=== PATIENT | female | born 1950 | race Caucasian/White ===

== ENCOUNTER 2018-09-12 07:35 | Day surgery (SDC) | payer OTHER ==
[~2018-09-12] VITALS: Ht 154.9 cm; Wt 61.6 kg
[~2018-09-12 07:35] MED LIST: Aspirin EC81 MG PO; BLOOD PRESSURE MED PO; CHOLESTEROL MED PO; Multiple Vitam1 EACH PO; PRESERVISION A1 EACH PO
[2018-09-12] MEDS ORDERED: ATOR80 PO (08:13)
[2018-09-12] MEDS ORDERED: LISI20 PO (08:13)
[2018-09-12] MEDS ORDERED: FISH OIL 1,2001 EAC1 PO (08:14)
--- NOTE | 2018-09-12 10:59 | NUR ---
09/12/18 1059 Tri Mulligan JAW THRUSTS PERFORMED THROUGHOUT PROCEDURE NEEDED FOR OBSTUCTION RELATED TO MYLENE.
== END 2018-09-12 10:45 | disposition home or self-care (01) ==
LOC: ORSCSDS 07:35
PROVIDERS: Student in an Organized Health Care Education/Training Program
PROC: 0DBN8ZX Excision of Sigmoid Colon, Via Natural or Artificial Opening Endoscopic, Diagnostic (ICD-10-PCS; principal; 2018-09-12 09:00)
PROC: 0DBK8ZX Excision of Ascending Colon, Via Natural or Artificial Opening Endoscopic, Diagnostic (ICD-10-PCS; principal; 2018-09-12 09:00)
PROC: 3E0H8GC Introduction of Other Therapeutic Substance into Lower GI, Via Natural or Artificial Opening Endoscopic (ICD-10-PCS; principal; 2018-09-12 09:00)
PROC: 0DBL8ZX Excision of Transverse Colon, Via Natural or Artificial Opening Endoscopic, Diagnostic (ICD-10-PCS; principal; 2018-09-12 09:00)
DX: Z12.11 Encounter for screening for malignant neoplasm of colon (principal); Z86.010 Personal history of colon polyps; C18.7 Malignant neoplasm of sigmoid colon; C18.4 Malignant neoplasm of transverse colon; K63.5 Polyp of colon; D12.3 Benign neoplasm of transverse colon; D12.5 Benign neoplasm of sigmoid colon; I10 Essential (primary) hypertension; E78.5 Hyperlipidemia, unspecified; F17.210 Nicotine dependence, cigarettes, uncomplicated; Z79.899 Other long term (current) drug therapy
CPT/HCPCS: 88305; J2001; J2704; J7120

== ENCOUNTER 2018-10-25 07:32 | Day surgery (SDC) | payer OTHER ==
[~2018-10-25] VITALS: Ht 154.9 cm; Wt 63.2 kg
[~2018-10-25 07:32] MED LIST changes: +ATOR80 PO; +FISH OIL 1,2001 EAC1 PO; +LISI20 PO
--- NOTE | 2018-10-25 08:36 | NUR ---
Ambulatory in Day Surgery History, Chart, Medications and Allergies reviewed before start of procedure. Lungs clear T/O to Auscultation. Patient confirms NPO status and agrees with scheduled surgery. Patient States Post-Procedure ride home has been arranged.
--- NOTE | 2018-10-25 11:07 | NUR ---
Patient up to Ambulate independently. Gait steady. Dressing to procedure site clean, dry, intact with no visible drainage, swelling, erythema or bruising noted. Discharge instructions reviewed with patient. Patient verbalizes understanding. Copy given to patient to take home. Discharged via wheelchair to private car for ride home.
--- NOTE | 2018-10-25 11:36 | NUR ---
TIERRA, PT REPORT FROM JOSE DANIEL ROLDAN THAT CXR NORMAL AFTER MEDIPORT PLACEMENT.
--- NOTE | 2018-10-27 16:08 | NUR ---
10/27/18 1608 Twyla Honeycutt VERIFICATIONS: EDIT CHART.
== END 2018-10-25 11:07 | disposition home or self-care (01) ==
LOC: ORSCMMR 07:32 → ORD 09:00 → ORSCMMR 11:07
PROVIDERS: Surgery
PROC: 05HM33Z Insertion of Infusion Device into Right Internal Jugular Vein, Percutaneous Approach (ICD-10-PCS; principal; 2018-10-25 09:00)
PROC: B5131ZA Fluoroscopy of Right Jugular Veins using Low Osmolar Contrast, Guidance (ICD-10-PCS; principal; 2018-10-25 09:00)
DX: C18.9 Malignant neoplasm of colon, unspecified (principal); C78.6 Secondary malignant neoplasm of retroperitoneum and peritoneum; I10 Essential (primary) hypertension; G47.33 Obstructive sleep apnea (adult) (pediatric); Z79.899 Other long term (current) drug therapy; Z79.82 Long term (current) use of aspirin; Z87.891 Personal history of nicotine dependence
CPT/HCPCS: 77001; C1788; J0690; J1100; J1642; J2250; J2405; J2704; J7120

== ENCOUNTER 2020-04-08 15:15 | Inpatient (IN) | payer OTHER, MEDICARE ==
[~2020-04-08] VITALS: Ht 154.9 cm; Wt 49.7 kg
[~2020-04-08 15:15] MED LIST changes: +MULTIVITAMIN PO; -Multiple Vitam1 EACH PO
[2020-04-08 16:53] LABS: BASOPHILS ABSOLUTE AUTO 0.06 K/mm3 (0.00-0.23); BASOPHILS PERCENT AUTO 1 % (0-2); EOSINOPHILS ABSOLUTE AUTO 0.01 K/mm3 (0.00-0.68); EOSINOPHILS PERCENT AUTO 0 % (0-6); IMMATURE GRAN ABSOLUTE AUTO 0.07 K/mm3 (0.00-0.10); IMMATURE GRAN PERCENT AUTO 1 % (0-1); LYMPHOCYTES ABSOLUTE AUTO 4.79 K/mm3 (0.84-5.20); LYMPHOCYTES PERCENT AUTO 38 % (21-46); MONOCYTES ABSOLUTE AUTO 1.18 K/mm3 (0.16-1.47); MONOCYTES PERCENT AUTO 9 % (4-13); Mean Corpuscular HGB 32.9 pg (26.0-34.0); Mean Corpuscular HGB Conc 34.2 g/dL (31.5-36.5); Mean Corpuscular Volume 96 fL (80-100); Mean Platelet Volume 8.9 fL (9.1-12.4); NEUTROPHILS ABSOLUTE AUTO 6.41 K/mm3 (1.96-9.15); NEUTROPHILS PERCENT AUTO 51 % (41-73); Platelet Count 405 K/mm3 (150-400); RDW Coefficient Variation 15.6 % (11.7-14.2); RDW Standard Deviation 55.1 fL (35.1-46.3); Red Blood Cell Count 3.95 M/mm3 (3.80-5.20); White Blood Cell Count 12.52 K/mm3 (4.00-11.30)
[2020-04-08 17:00] LABS: Influenza A, PCR NEGATIVE (NEGATIVE); Influenza B, PCR NEGATIVE (NEGATIVE); Resp Syncytial Virus, PCR NEGATIVE (NEGATIVE); SARS-Cov-2 (COVID-19) PCR, MMC NEGATIVE (NEGATIVE)
--- NOTE | 2020-04-08 18:28 | NUR ---
REPORT RECEIVED FROM ED RN
[2020-04-09 04:16] LABS: BASOPHILS ABSOLUTE AUTO 0.05 K/mm3 (0.00-0.23); BASOPHILS PERCENT AUTO 1 % (0-2); EOSINOPHILS ABSOLUTE AUTO 0.02 K/mm3 (0.00-0.68); EOSINOPHILS PERCENT AUTO 0 % (0-6); Hematocrit 32.6 % (33.0-51.0); Hemoglobin 11.1 g/dL (11.5-16.0); IMMATURE GRAN ABSOLUTE AUTO 0.03 K/mm3 (0.00-0.10); IMMATURE GRAN PERCENT AUTO 0 % (0-1); LYMPHOCYTES ABSOLUTE AUTO 3.16 K/mm3 (0.84-5.20); LYMPHOCYTES PERCENT AUTO 36 % (21-46); MONOCYTES ABSOLUTE AUTO 0.98 K/mm3 (0.16-1.47); MONOCYTES PERCENT AUTO 11 % (4-13); Mean Corpuscular HGB 32.7 pg (26.0-34.0); Mean Corpuscular Volume 96 fL (80-100); Mean Platelet Volume 8.7 fL (9.1-12.4); NEUTROPHILS ABSOLUTE AUTO 4.52 K/mm3 (1.96-9.15); NEUTROPHILS PERCENT AUTO 52 % (41-73); Platelet Count 310 K/mm3 (150-400); RDW Coefficient Variation 15.5 % (11.7-14.2); RDW Standard Deviation 54.4 fL (35.1-46.3); Red Blood Cell Count 3.39 M/mm3 (3.80-5.20); White Blood Cell Count 8.76 K/mm3 (4.00-11.30)
[2020-04-09 04:41] LABS: Anion Gap 13 mmol/L (6-16); Blood Urea Nitrogen 18 mg/dL (8-24); CO2, Blood 22 mmol/L (21-32); Calcium, Blood 8.2 mg/dL (8.5-10.1); Chloride, Blood 104 mmol/L (98-108); Creatinine, Blood 0.49 mg/dL (0.40-1.00); Glomerular Filtration Rate >60 (60-); Glucose, Blood 67 mg/dL (70-99); Potassium, Blood 3.4 mmol/L (3.5-5.5); Sodium, Blood 139 mmol/L (136-145)
--- NOTE | 2020-04-09 06:19 | NUR ---
SUMMARY REMAINS NPO PENDING OR TODAY. VOIDING AND HAS LIGHT CARISSA WATERS.CALLED TONIGHT AND OBTAINED ORDERS FOR IV MEDS AND IV FLUIDS.ALSO WILL HOLD LOVENOX THIS AM.
--- NOTE | 2020-04-09 14:16 | NUR ---
PT TO DAY SURGERY VIA FR[facility]ISCO
--- NOTE | 2020-04-09 14:39 | NUR ---
History, Chart, Medications and Allergies reviewed before start of procedure. Lungs clear T/O to Auscultation. Pre-Op teaching done. Pt verbalizes understanding.
--- NOTE | 2020-04-09 15:16 | NUR ---
CARE COORDINATION REFERRAL - ADMIT: 04/08/20 DISCHARGE: DX: BOWEL OBSTRUCTION CC: KWILCOX KRISTINA CALL: PATIENT RESIDENCE: HOME CAREGIVER: SELF DX: ADENOCARCINOMA OF SIGMOID COLON, HTN, MYLENE, VIT D DEFICIENCY, SEE LIST DME: CPAP MACHINE CCM: NONE HOME HEALTH: NONE SUMMARY: ADMIT: 04/08/20 04/09/20- PT IS SCHEDULED TO HAVE SURGERY TODAY. -CELESTE
--- NOTE | 2020-04-09 17:50 | NUR ---
POST OP ARRIVES TO ROOM C/O 09/17 PAIN. EYES CLOSED, BUT EYEBROWS FORROWED. VSS & APPROPRIATE. ABD W/ 2 LAP SITES TO R SIDE OF ABD W/ WOUND GLUE. NO DRAINAGE NOTED. OSTOMY TO L ABD. GAS; NO STOOL. STOMA MOIST, PINK. LUNGS CLEAR. CALL MADE TO DR PEREZ RE: PAIN MANAGEMENT.
--- NOTE | 2020-04-10 04:07 | NUR ---
SHIFT SUMMARY POD1 LAP LOOP ILEOSTOMY. VSS. PT REPORTS PAIN 5/10, WELL CONTROLLED AND MANAGED WITH DILAUDID. PT SLEPT T/O SHFIT. WENT TO BSC X3, TOLERATING MOV'T WELL, MILD SHAKY. PT TOLERATING ICE CHIPS AND WATER. PT HAS FEAR TO ADVANCE HER DIET AT THIS TIME. SHE DENIES N/V. ILEOSOTMY BEEFY RED, INTACT WITH OUTPUT OF 300ML, HAS BEEN PASSING FLATUS IN HER ILEOSTOMY BAG. ADEQUATE URINE OUTPUT. DENIES DIFFICULTY VOIDING. LUNGS ARE CLEAR. PT IS COMFORTABLE IN HER BED AT THIS TIME. CALL LIGHT WITHIN REACH.
--- NOTE | 2020-04-10 09:32 | NUR ---
DR PEREZ RECENTLY HERE TO SEE PT.
--- NOTE | 2020-04-10 16:24 | NUR ---
SHIFT SUMMARY PT HAD EMESIS EARLIER TODAY, PT WAS MED FOR NAUSEA. PT HAD SHOWER TODAY. PT BEEN UP TO BATHROOM WITH ASSIST. PT HAVING GAS OUT OF OSTOMY. DR LIMON HERE TO SEE PT TODAY WELL DR PEREZ. PT TOLERATING ICE CHIPS AND WATER BUT DOES NOT LIKE TO EAT MUCH. SENIOR SALES MANAGER WAS HERE TO SEE PT WHEN FAMILY WAS PRESENT. PT USING CALL LIGHT APPR. IVF IN PLACE TO MEDIPORE, FLUSHES WELL.
--- NOTE | 2020-04-11 03:36 | NUR ---
SHIFT SUMMARY PT AOX4. VSS. TOLERATING PO INTAKE, DENIES N/V. ENC TO HYDRATE WITH WATER. PT IS 1 PERSON SBA W/ FWW. PT HAS BEEN PASSING FLATUS. PT USING CALL LIGHT APPROPRIATELY. REPORTS PAIN AT AROUND MIDNIGHT. PAIN MANAGED WITH DILAUDID. SHE SLEPT T/O THE SHIFT AFTER MIDNIGHT. OSTOMY BAG INTACT. OSTOMY OUTPUT WITH 300ML W/ LIGHT BROWN LIQUID. PT ALSO DENIES CP, SOB, NUMBNESS AND TINGLING SENSATION. CALL LIGHT WITHIN REACH.
[2020-04-11 05:01] LABS: BASOPHILS ABSOLUTE AUTO 0.04 K/mm3 (0.00-0.23); BASOPHILS PERCENT AUTO 0 % (0-2); EOSINOPHILS PERCENT AUTO 0 % (0-6); Hematocrit 31.9 % (33.0-51.0); Hemoglobin 10.9 g/dL (11.5-16.0); IMMATURE GRAN ABSOLUTE AUTO 0.13 K/mm3 (0.00-0.10); IMMATURE GRAN PERCENT AUTO 1 % (0-1); LYMPHOCYTES ABSOLUTE AUTO 2.45 K/mm3 (0.84-5.20); LYMPHOCYTES PERCENT AUTO 15 % (21-46); MONOCYTES ABSOLUTE AUTO 0.74 K/mm3 (0.16-1.47); MONOCYTES PERCENT AUTO 4 % (4-13); Mean Corpuscular HGB 33.1 pg (26.0-34.0); Mean Corpuscular HGB Conc 34.2 g/dL (31.5-36.5); Mean Corpuscular Volume 97 fL (80-100); Mean Platelet Volume 9.1 fL (9.1-12.4); NEUTROPHILS ABSOLUTE AUTO 13.28 K/mm3 (1.96-9.15); NEUTROPHILS PERCENT AUTO 80 % (41-73); Platelet Count 266 K/mm3 (150-400); RDW Coefficient Variation 15.5 % (11.7-14.2); RDW Standard Deviation 55.2 fL (35.1-46.3); Red Blood Cell Count 3.29 M/mm3 (3.80-5.20); White Blood Cell Count 16.64 K/mm3 (4.00-11.30)
[2020-04-11 05:18] LABS: Anion Gap 8 mmol/L (6-16); Blood Urea Nitrogen 8 mg/dL (8-24); Bun/Creatinine Ratio 17.2 (12.0-20.0); CO2, Blood 23 mmol/L (21-32); Calcium, Blood 8.8 mg/dL (8.5-10.1); Chloride, Blood 103 mmol/L (98-108); Creatinine, Blood 0.46 mg/dL (0.40-1.00); Glomerular Filtration Rate >60 (60-); Glucose, Blood 100 mg/dL (70-99); Potassium, Blood 3.6 mmol/L (3.5-5.5); Sodium, Blood 134 mmol/L (136-145)
--- NOTE | 2020-04-11 10:47 | NUR ---
DISCUSSED PT'S STATUS WITH DR PERSAUD.
--- NOTE | 2020-04-11 12:45 | NUR ---
LAB NOTIFIED RN OF PT REQUESTING TO HAVE BLOOD CULTURE DRAWN FROM [facility]. DR NOTIFIED, REPORTS TO DRAW ONE FROM [facility] AND ONE FROM OTHER LOCATION. LAB NOTIFIED.
--- NOTE | 2020-04-11 14:56 | NUR ---
DR PEREZ RECENTLY HERE TO SEE PT.
[2020-04-11 15:46] LABS: Source, Urine Clean Catch
[2020-04-11 15:50] LABS: Appearance, Urine Clear (Clear); Bilirubin, Urine Neg (Neg); Blood, Urine 1+ (Neg); Color, Urine Yellow (P-Yellow); Glucose Qualitative, Urine 1+ (Neg); Ketones, Urine Neg (Neg); Leukocyte Esterase, Urine 2+ (Neg); Nitrite, Urine Neg (Neg); Protein, Urine 1+ (Neg); Specific Gravity, Urine 1.015 (1.003-1.022); Urobilinogen, Urine 1+ (Normal)
[2020-04-11 16:05] LABS: Bacteria Few /hpf; Mucus Mod (0-Heavy); Red Blood Cells, Urine 0-2 /hpf (0-2); Squamous Epithelial Cells Few /hpf (Few)
--- NOTE | 2020-04-11 16:46 | NUR ---
SHIFT SUMMARY PT TOLERATED CRACKERS TODAY WHICH DR PEREZ REPORTED TO GIVE HER. PT HAD SMALL AMT OUT OF OSTOMY THIS AFTERNOON/EVENING. PT BEEN UP WITH SBA. PT USING FLUTTER VALVE AND I/S. PT USING CALL LIGHT APPR. PT BEEN ASSISTED WITH ADL'S PRN. PT MED FOR PAIN WHEN PT HAVING HICCUPS. DR PERSAUD AND DR PEREZ BEEN TO SEE PT TODAY. PT IN BED TAKING NAP AT THIS TIME.
--- NOTE | 2020-04-12 07:30 | NUR ---
SHIFT SUMMARY POD#3. AAOX4. DISCOMFORT CONTROLLED WITH TYLENOL + X1 MORPHINE. NO NAUSEA/EMESIS. ABD INCISION C/D/I WITH LARGE AMOUNTS OF LIQUID OUTPUT THROUGH ILEOSTOMY. UP TO RESTROOM SBA. IVF PER ORDERS. NO ACUTE CHANGES T/O NIGHT. PT RESTED WELL. REPORT TO DAY SHIFT RN AT THIS TIME.
--- NOTE | 2020-04-12 10:17 | NUR ---
[employer] FORM FAXED. PT WATCHING OSTOMY EDUCATION VIDEOS CURRENTLY. PT EMPTIED HER OWN BAG THIS MORNING. WILL CONTINUE EDUCATION TODAY, INCLUDING WITH DAUGHTER WHEN SHE ARRIVES AT 1400.
--- NOTE | 2020-04-12 19:38 | NUR ---
SHIFT SUMMARY PT A&OX4, VSS, POD3 ILEOSTOMY PLACEMENT WITH LARGE AMOUNT OF BROWN LIQUID OUTPUT. PAIN MANAGED WITH TYLENOL. DAVID REG DIET, DENIES N&V. AMBULATES SBA TO [facility]; UP TO CHAIR T/O SHIFT. PT PROVIDED EDUCATION ON OSTOMY EMPTYING TODAY; PT IS NOW EMPTYING OSTOMY ON HER OWN WITH HEDIS REGISTERED NURSE RN STANDBY; PT SHOWN WHERE TO FIND OSTOMY VIDEOS, PT HAS BEEN WATCHING VIDEOS OFF/ON T/O SHIFT. REPORT PROVIDED TO OMEGA PERES.
--- NOTE | 2020-04-13 02:56 | NUR ---
SHIFT SUMMARY: POD 4 ILEOSTOMY PATIENT IS ALERT AND ORIENTED X4. VITAL SIGNS ARE WNL AND IS ON RA. PAIN IS CONTROLLED WITH TYLENOL, TYLENOL PM, AND NORCO. SHE HAS LIQUID BROWN OUTPUT IN THE OSTOMY BAG. PATIENT HAS BEEN EMPTYING OUT OSTOMY ON HER OWN AND IS TOLERATING PO INTAKE. SHE IS A SBA WITH AMBULATION. SHE DENIES NAUSEA OR VOMITING. PATIENT IS CURRENTLY LAYING IN BED WITH CALL LIGHT IN REACH. THE PLAN IS TO CONTINUE OSTOMY EDUCATION WITH VIDEOS. SHE NEEDS TO HAVE LESS THEN 1 LITER OF OUTPUT TO BE DISCHARGED HOME.
[2020-04-13 04:33] LABS: BASOPHILS ABSOLUTE AUTO 0.03 K/mm3 (0.00-0.23); BASOPHILS PERCENT AUTO 0 % (0-2); EOSINOPHILS ABSOLUTE AUTO 0.16 K/mm3 (0.00-0.68); EOSINOPHILS PERCENT AUTO 2 % (0-6); Hematocrit 28.6 % (33.0-51.0); IMMATURE GRAN ABSOLUTE AUTO 0.04 K/mm3 (0.00-0.10); IMMATURE GRAN PERCENT AUTO 0 % (0-1); LYMPHOCYTES ABSOLUTE AUTO 1.96 K/mm3 (0.84-5.20); LYMPHOCYTES PERCENT AUTO 20 % (21-46); MONOCYTES ABSOLUTE AUTO 0.77 K/mm3 (0.16-1.47); MONOCYTES PERCENT AUTO 8 % (4-13); Mean Corpuscular Volume 94 fL (80-100); Mean Platelet Volume 9.5 fL (9.1-12.4); NEUTROPHILS ABSOLUTE AUTO 7.06 K/mm3 (1.96-9.15); NEUTROPHILS PERCENT AUTO 70 % (41-73); Platelet Count 263 K/mm3 (150-400); RDW Coefficient Variation 15.4 % (11.7-14.2); RDW Standard Deviation 53.4 fL (35.1-46.3); Red Blood Cell Count 3.03 M/mm3 (3.80-5.20); White Blood Cell Count 10.02 K/mm3 (4.00-11.30)
[2020-04-13 04:49] LABS: Anion Gap 5 mmol/L (6-16); Blood Urea Nitrogen 7 mg/dL (8-24); Bun/Creatinine Ratio 16.1 (12.0-20.0); CO2, Blood 29 mmol/L (21-32); Calcium, Blood 8.8 mg/dL (8.5-10.1); Chloride, Blood 101 mmol/L (98-108); Creatinine, Blood 0.44 mg/dL (0.40-1.00); Glomerular Filtration Rate >60 (60-); Glucose, Blood 92 mg/dL (70-99); Potassium, Blood 3.3 mmol/L (3.5-5.5); Sodium, Blood 135 mmol/L (136-145)
--- NOTE | 2020-04-13 16:58 | NUR ---
OSTOMY APPLIANCE CHANGED PT EDUCATED OSTOMY APPLIANCE WAS CHANGED. PT REQUIRED 2 3/4 OVAL OSTOMY APPLIANCE. PT TOLERATED DRESSING CHANGE WELL. SKIN AROUND OSTOMY APPLIANCE CLEAN AND INTACT.
--- NOTE | 2020-04-13 18:06 | NUR ---
SHIFT SUMMARY PT IS POD#[address] PEREZ. PAIN HAS BEEN MANAGED WITH NORCO AND TYLENOL. PT IS TOLERATING SMALL AMOUNTS OF HER REGULAR DIET. PT IS A SBA WHEN UP TO THE BATHROOM. SHE HAS DEMONSTRATED THE ABILITY TO EMPTY HER OSTOMY BAG. PT WAS EDUCATED ABOUT CHANGING THE OSTOMY APPLIANCE. PT IS STILL HAVING LARGE AMOUNTS OF STOOL OUT OF HER OSTOMY. POTASSIUM WAS LOW TODAY AND REPLACED. VSS. WILL MONITOR UNTIL REPORT TO ONCOMING RN.
[2020-04-14 05:12] LABS: BASOPHILS ABSOLUTE AUTO 0.05 K/mm3 (0.00-0.23); BASOPHILS PERCENT AUTO 0 % (0-2); EOSINOPHILS ABSOLUTE AUTO 0.26 K/mm3 (0.00-0.68); EOSINOPHILS PERCENT AUTO 2 % (0-6); Hematocrit 33.9 % (33.0-51.0); Hemoglobin 11.5 g/dL (11.5-16.0); IMMATURE GRAN ABSOLUTE AUTO 0.04 K/mm3 (0.00-0.10); IMMATURE GRAN PERCENT AUTO 0 % (0-1); LYMPHOCYTES ABSOLUTE AUTO 3.42 K/mm3 (0.84-5.20); LYMPHOCYTES PERCENT AUTO 30 % (21-46); MONOCYTES ABSOLUTE AUTO 0.88 K/mm3 (0.16-1.47); MONOCYTES PERCENT AUTO 8 % (4-13); Mean Corpuscular HGB 32.7 pg (26.0-34.0); Mean Corpuscular HGB Conc 33.9 g/dL (31.5-36.5); Mean Corpuscular Volume 96 fL (80-100); Mean Platelet Volume 9.1 fL (9.1-12.4); NEUTROPHILS ABSOLUTE AUTO 6.92 K/mm3 (1.96-9.15); NEUTROPHILS PERCENT AUTO 60 % (41-73); Platelet Count 349 K/mm3 (150-400); RDW Coefficient Variation 15.4 % (11.7-14.2); RDW Standard Deviation 54.1 fL (35.1-46.3); Red Blood Cell Count 3.52 M/mm3 (3.80-5.20); White Blood Cell Count 11.57 K/mm3 (4.00-11.30)
[2020-04-14 05:33] LABS: Anion Gap 5 mmol/L (6-16); Blood Urea Nitrogen 5 mg/dL (8-24); Bun/Creatinine Ratio 10.7 (12.0-20.0); CO2, Blood 26 mmol/L (21-32); Chloride, Blood 104 mmol/L (98-108); Creatinine, Blood 0.47 mg/dL (0.40-1.00); Glomerular Filtration Rate >60 (60-); Glucose, Blood 90 mg/dL (70-99); Magnesium, Blood 1.3 mg/dL (1.6-2.4); Phosphorus, Blood 2.8 mg/dL (2.5-4.9); Potassium, Blood 4.7 mmol/L (3.5-5.5); Sodium, Blood 135 mmol/L (136-145)
--- NOTE | 2020-04-14 07:11 | NUR ---
SUMMARY PT CONTINUES TO HAVE LARGE VOLUME OUTPUT.
--- NOTE | 2020-04-14 19:27 | NUR ---
SHIFT SUMMARY PT IS POD#4 FROM LAPAROSCOPIC DIVERTING LOOP ILEOSTOMY. PT IS ABLE TO EMPTY HER OSTOMY BAG INDEPENDENTLY. OSTOMY IS STILL PUTTING OUT LARGE AMOUNTS OF LIQUID STOOL. PT REMAINS ON IV FLUIDS FOR HYDRATION. PT ENCOURAGED TO DRINK FLUIDS THAT CONTAIN ELECTROLYTES. PT IS A SBA FOR HELP WITH LINES AND TUBES. PT TOLERATING SMALL AMOUNTS OF REGULAR DIET. VSS. REPORT GIVEN TO [place] PERES.
[2020-04-15 02:58] LABS: BASOPHILS ABSOLUTE AUTO 0.05 K/mm3 (0.00-0.23); BASOPHILS PERCENT AUTO 1 % (0-2); EOSINOPHILS ABSOLUTE AUTO 0.17 K/mm3 (0.00-0.68); EOSINOPHILS PERCENT AUTO 2 % (0-6); Hematocrit 33.5 % (33.0-51.0); Hemoglobin 11.5 g/dL (11.5-16.0); IMMATURE GRAN ABSOLUTE AUTO 0.04 K/mm3 (0.00-0.10); IMMATURE GRAN PERCENT AUTO 0 % (0-1); LYMPHOCYTES ABSOLUTE AUTO 4.17 K/mm3 (0.84-5.20); LYMPHOCYTES PERCENT AUTO 45 % (21-46); MONOCYTES ABSOLUTE AUTO 0.79 K/mm3 (0.16-1.47); MONOCYTES PERCENT AUTO 9 % (4-13); Mean Corpuscular HGB 32.8 pg (26.0-34.0); Mean Corpuscular HGB Conc 34.3 g/dL (31.5-36.5); Mean Corpuscular Volume 95 fL (80-100); Mean Platelet Volume 9.1 fL (9.1-12.4); NEUTROPHILS ABSOLUTE AUTO 4.06 K/mm3 (1.96-9.15); NEUTROPHILS PERCENT AUTO 44 % (41-73); Platelet Count 354 K/mm3 (150-400); RDW Coefficient Variation 15.6 % (11.7-14.2); RDW Standard Deviation 54.2 fL (35.1-46.3); Red Blood Cell Count 3.51 M/mm3 (3.80-5.20); White Blood Cell Count 9.28 K/mm3 (4.00-11.30)
[2020-04-15 03:12] LABS: Anion Gap 6 mmol/L (6-16); Blood Urea Nitrogen 7 mg/dL (8-24); Bun/Creatinine Ratio 14.3 (12.0-20.0); CO2, Blood 27 mmol/L (21-32); Calcium, Blood 8.9 mg/dL (8.5-10.1); Chloride, Blood 101 mmol/L (98-108); Creatinine, Blood 0.49 mg/dL (0.40-1.00); Glomerular Filtration Rate >60 (60-); Glucose, Blood 99 mg/dL (70-99); Magnesium, Blood 1.7 mg/dL (1.6-2.4); Phosphorus, Blood 3.2 mg/dL (2.5-4.9); Potassium, Blood 4.4 mmol/L (3.5-5.5); Sodium, Blood 134 mmol/L (136-145)
--- NOTE | 2020-04-15 06:13 | NUR ---
SHIFT SUMMARY LYING IN HIGH FOWLERS WITH EYES CLOSED. AAO X3, GATES, FOLLOWS ALL COMMANDS. HAS RESTED WELL THIS SHIFT. REITERATED NEED TO BURP OSTOMY BAG TO KEEP IT FROM BURSTING AWAY FROM HER BODY, VOICES UNDERSTATNDING. ABLE TO RETURN DEMONSTRATE HOW TO BURP THE BAG. LAP SITES ARE C/D/I. IVF INFUSING TO RIGHT CW MEDIPORT. AM LABS DRAWN WITH EASE. ABLE TO AMBULATE TO COMMODE WITH SBA AND WALKER, TOLERATING WELL. NO SIGNIFICANT CHANGES THIS SHIFT. DENIES PAIN, DISCOMFORT, OR FURTHER NEEDS AT THIS TIME. SAFETY MEASURES IN PLACE. WILL CONTINUE TO MONITOR AND GIVE HAND OFF TO ONCOMING SHIFT USING SBAR DURING BEDSIDE REPORT.
--- NOTE | 2020-04-15 16:52 | NUR ---
SHIFT SUMMARY PT IS IND TO EMPTY OWN OSTOMY BAG. NERVOUS TO CHANGE ENTIRE APPLIANCE. WAITING FOR TOMORROW TO DO THIS SO DAUGHTER CAN BE INVOLVED. TAKING IN PO WELL.
--- NOTE | 2020-04-15 18:48 | NUR ---
04/15/[address] Quijano, ETA discharge home on Wednesday. Per floor nurse, patient would like a bedside commode and a shower chair ordered at discharge. cp
--- NOTE | 2020-04-16 05:23 | NUR ---
SHIFT SUMMARY PT AOX4. VSS. NO ACUTE CHANGES OVERNIGHT. PT STATES SHE DID NOT GET ENOUGH SLEEP T/O SHIFT. SHE HAS BEEN INDEPENDENT IN ROOM AND IN CARING FOR HER OSTOMY BAG. PAIN IS WELL CONTROLLED. PAIN MANAGED WITH NORCO X1 AND TYLENOL X1. ANTICIPATE FOR DISCHARGE TODAY. SEE PREVIOUS NOTES. CALL LIGHT WITHIN REACH.
[2020-04-16 05:29] LABS: Anion Gap 6 mmol/L (6-16); Blood Urea Nitrogen 7 mg/dL (8-24); Bun/Creatinine Ratio 14.6 (12.0-20.0); CO2, Blood 27 mmol/L (21-32); Calcium, Blood 8.9 mg/dL (8.5-10.1); Chloride, Blood 103 mmol/L (98-108); Creatinine, Blood 0.48 mg/dL (0.40-1.00); Glomerular Filtration Rate >60 (60-); Glucose, Blood 81 mg/dL (70-99); Potassium, Blood 4.2 mmol/L (3.5-5.5); Sodium, Blood 136 mmol/L (136-145)
--- NOTE | 2020-04-16 15:05 | NUR ---
04/16/20- REVIEWED KRISTINA LETTER WITH PT. SHE HAS REQUESTED A 4WW AND SHOWER CHAIR. ORDER PUT IN THROUGH [place] FOR PROVIDER TO SIGN. PT WOULD LIKE TO HAVE HER DAUGHTER'S NUMBER BE THE CONTACT INFORMATION INCASE SHE IS UNABLE TO GET TO THE PHONE. HER DAUGHTER IS TONI- [phone]. ORDERED DME THROUGH [facility] AND REQUESTED THAT IT BE DELIVERED TO THE HOME TOMORROW MORNING PRIOR TO PT BEING DISCHARGED. -KEITHW
--- NOTE | 2020-04-16 15:48 | NUR ---
OSTOMY EDUCATION > 1 HR SPENT W/ EDUCATION. PT WAS ABLE TO APPLY NEW OSTOMY APPLIANCE W/ VERY MINIMAL ASSIST FROM THIS RN.
--- NOTE | 2020-04-16 18:07 | NUR ---
SHIFT SUMMARY PT HAS CONTINUED TO BE INVOLVED IN OSTOMY CARE. PAIN WELL MANAGED. EATING & DRINKING WELL.
--- NOTE | 2020-04-17 05:45 | NUR ---
OSTOMY LEAKING, PT WAS CLEANED, LINENS CHANGED, NEW GOWN ON. CHANGED APPLIANCE WITH 2 3/4 OVAL. SKIN WAS RED FROM THE ADHESIVE FROM PREVIOUS APPLIANCE. DID APPLY SKIN BARRIER TO SURROUNDING SKIN. STOMA PINK AND MOIST. PT DOES COMPLAIN OR ITCHING TO BACK. DOES HAS RASH SLIGHTLY RAISED. PRIMARY NURSE NOTIFIED, DR. JASON WAS CALLED AND BENADRYL WAS ORDERED.
--- NOTE | 2020-04-17 11:04 | NUR ---
Brief supportive visit this AM. Pt resting in bed upon arrival. Pt reports current regimen is managing her pain at this time. Pt denies dyspnea, nausea, and anxiety. Offered therapeutic listening as Pt reports adequate support at home with her daughter and son in law. Listened as Pt reports plan to resume chemo therapy. Continued therapeutic listening. Pt reports no concerns at this time. Spoke with Bedside JA Mauro and discussed case. Possible plan to D/C home today. No concerns reported at this time. Palliative Care will remain available.
[2020-04-17] MEDS ORDERED: HYDR1TAB94 PO (13:54)
[2020-04-17] MEDS ORDERED: LOPE2C PO (13:55)
--- NOTE | 2020-04-17 14:24 | NUR ---
DISCHARGE INSTRUCTIONS. PT DOING WELL. HOME W/ HOME HEALTH SET UP. PLENTY OF OSTOMY SUPPLIES SENT. PT FEELS CONFIDENT WITH OSTOMY. MEDS CALLED TO [facility]. SCRIPT GIVEN. AWAITING DAUGHTER FOR RIDE HOME.
--- NOTE | 2020-04-17 15:44 | NUR ---
04/17/20- PT IS GOING TO BE DISCHARGED TODAY HOME. HER DAUGHTER TONI WILL PICK HER UP AT 3PM PER HER CONVERSATION WITH THE PT. DAUGHTER REQUESTED A BEDSIDE COMMODE. SHE ALSO STATES THAT THE WALKER AND SHOWER CHAIR HAD NOT BE DELIVERED AT THE TIME OF CONVERSATION. CONTACTED [facility] AND THEY REPORT THAT THE PUBLIC DEFENDER IS OUT WITH THEIR ITEMS AT TIME OF CALL AND HE CAN SWING BY A MINING TEACHER THE BEDSIDE COMMODE TO DELIVER SAME TIME OTHER ITEMS. CALLED DAUGHTER AND UPDATED HER ON [facility] DELIVERY. REVIEWED KRISTINA LETTER WITH DAUGHTER AND THAT HER MOM HAS HER LISTED AT PERSON TO CONTACTED. CONFIRMED THE NUMBER WITH HER. DAUGHTER ACKNOWLEDGED UNDERSTANDING. -CELESTE
== END 2020-04-17 15:01 | disposition home health service (06) | DRG 329 ==
LOC: ER 15:15 → SURS 16:41 → ERHOLD 16:41 → SURS 18:39
PROVIDERS: Physician Assistant; Surgery; ADMIT Internal Medicine
PROC: 0D1B4Z4 Bypass Ileum to Cutaneous, Percutaneous Endoscopic Approach (ICD-10-PCS; principal; 2020-04-09 15:30)
DX: C18.2 Malignant neoplasm of ascending colon (principal); E43 Unspecified severe protein-calorie malnutrition; T45.1X5A Adverse effect of antineoplastic and immunosuppressive drugs, initial encounter; G62.0 Drug-induced polyneuropathy; E87.6 Hypokalemia; E83.42 Hypomagnesemia; Z79.899 Other long term (current) drug therapy; Z79.82 Long term (current) use of aspirin; Z88.0 Allergy status to penicillin; Z20.822 Contact with and (suspected) exposure to COVID-19; Z98.890 Other specified postprocedural states; Z87.891 Personal history of nicotine dependence; M81.0 Age-related osteoporosis without current pathological fracture; Z90.710 Acquired absence of both cervix and uterus; D72.828 Other elevated white blood cell count; D47.3 Essential (hemorrhagic) thrombocythemia
CPT/HCPCS: 0241U; 36415; 71045; 74177; 80048; 81001; 82947; 83735; 84100; 84145; 85025; 87040; 93005; 93010; 94668; 94760; 94762; 97110; 97112; 97116; 97162; 97165; 97530; 97535; 99285-25; A9270; J0690; J1100; J1170; J1642; J1650; J2270; J2405; J2704; J3010; J3475; J7030; J7050; J7120; Q9967

== ENCOUNTER 2020-07-03 22:07 | Inpatient (IN) | payer MEDICARE, OTHER ==
[~2020-07-03] VITALS: Ht 154.9 cm; Wt 44.5 kg
[~2020-07-03 22:07] MED LIST changes: +HYDR1TAB94 PO; +LOPE2C PO
[2020-07-04 01:39] LABS: Source, Urine Clean Catch
[2020-07-04 01:42] LABS: Appearance, Urine Clear (Clear); Bilirubin, Urine Neg (Neg); Blood, Urine 3+ (Neg); Color, Urine Yellow (P-Yellow); Glucose Qualitative, Urine Neg (Neg); Ketones, Urine Neg (Neg); Leukocyte Esterase, Urine Neg (Neg); Nitrite, Urine Pos (Neg); Protein, Urine 2+ (Neg); Specific Gravity, Urine 1.015 (1.003-1.022); Urobilinogen, Urine NORM (Normal)
[2020-07-04 01:48] LABS: Bacteria Many /hpf; Hyaline Casts 0-2 /lpf (0-2); Red Blood Cells, Urine 0-2 /hpf (0-2); Squamous Epithelial Cells Few /hpf (Few)
[2020-07-04 02:44] LABS: U Amphetamine Screen Not Detected; U Barbituate Screen Not Detected; U Benzodiazapine Screen Not Detected; U Buprenorphine Screen Not Detected; U Cannabinoids Screen Not Detected; U Cocaine Screen Not Detected; U Methadone Screen Not Detected; U Methamphetamine Screen Not Detected; U Opiates Screen Not Detected; U Oxycodone Screen Not Detected; U Phencyclidine Screen Not Detected; U Propoxyphene Screen Not Detected
[2020-07-04 03:18] LABS: Hematocrit 27.3 % (33.0-51.0); Hemoglobin 9.2 g/dL (11.5-16.0); Mean Corpuscular HGB 30.1 pg (26.0-34.0); Mean Corpuscular HGB Conc 33.7 g/dL (31.5-36.5); Mean Corpuscular Volume 89 fL (80-100); Mean Platelet Volume 9.8 fL (9.1-12.4); Platelet Count 67 K/mm3 (150-400); RDW Coefficient Variation 13.6 % (11.7-14.2); RDW Standard Deviation 43.7 fL (35.1-46.3); Red Blood Cell Count 3.06 M/mm3 (3.80-5.20)
[2020-07-04 03:19] LABS: BASOPHILS PERCENT AUTO 0 % (0-2); EOSINOPHILS PERCENT AUTO 0 % (0-6); IMMATURE GRAN PERCENT AUTO 0 % (0-1); LYMPHOCYTES ABSOLUTE AUTO 0.35 K/mm3 (0.84-5.20); LYMPHOCYTES PERCENT AUTO 95 % (21-46); MONOCYTES ABSOLUTE AUTO 0.01 K/mm3 (0.16-1.47); MONOCYTES PERCENT AUTO 3 % (4-13); NEUTROPHILS ABSOLUTE AUTO 0.01 K/mm3 (1.96-9.15); NEUTROPHILS PERCENT AUTO 3 % (41-73)
[2020-07-04 03:20] LABS: White Blood Cell Count 0.37 K/mm3 (4.00-11.30)
[2020-07-04 03:37] LABS: Alanine Aminotransfer (ALT/SGP 19 U/L (12-78); Albumin, Blood 3.2 g/dL (3.4-5.0); Albumin/Globulin Ratio 0.8 (0.8-1.8); Alk Phos 74 U/L (50-136); Anion Gap 7 mmol/L (6-16); Aspartate Aminotrans (AST/SGOT 10 U/L (12-37); Bilirubin, Total 0.9 mg/dL (0.1-1.0); Blood Urea Nitrogen 15 mg/dL (8-24); Bun/Creatinine Ratio 25.2 (12.0-20.0); CO2, Blood 23 mmol/L (21-32); Calcium, Blood 9.2 mg/dL (8.5-10.1); Chloride, Blood 100 mmol/L (98-108); Globulin, Blood 3.9 g/dL (2.2-4.0); Glomerular Filtration Rate >60 (60-); Glucose, Blood 127 mg/dL (70-99); Potassium, Blood 3.5 mmol/L (3.5-5.5); Sodium, Blood 130 mmol/L (136-145); Total Protein, Blood 7.1 g/dL (6.4-8.2)
[2020-07-04 06:25] LABS: Hematocrit 28.9 % (33.0-51.0); Hemoglobin 9.9 g/dL (11.5-16.0); Mean Corpuscular HGB 30.3 pg (26.0-34.0); Mean Corpuscular HGB Conc 34.3 g/dL (31.5-36.5); Mean Corpuscular Volume 88 fL (80-100); Mean Platelet Volume 8.7 fL (9.1-12.4); Platelet Count 78 K/mm3 (150-400); RDW Coefficient Variation 13.5 % (11.7-14.2); RDW Standard Deviation 43.4 fL (35.1-46.3); Red Blood Cell Count 3.27 M/mm3 (3.80-5.20)
[2020-07-04 06:41] LABS: Anion Gap 9 mmol/L (6-16); Blood Urea Nitrogen 14 mg/dL (8-24); CO2, Blood 22 mmol/L (21-32); Calcium, Blood 9.4 mg/dL (8.5-10.1); Chloride, Blood 99 mmol/L (98-108); Creatinine, Blood 0.67 mg/dL (0.40-1.00); Glomerular Filtration Rate >60 (60-); Glucose, Blood 126 mg/dL (70-99); Potassium, Blood 3.8 mmol/L (3.5-5.5); Sodium, Blood 130 mmol/L (136-145)
--- NOTE | 2020-07-04 07:26 | NUR ---
SHIFT SUMMARY: PT ARRIVED ON MEDICAL FLOOR AT 0615 FROM ED. LETHARGIC BUT AWAKENS WITH SLIDE T/F AND WHEN SPOKEN TO. MOOD IS IRRITABLE, WITHDRAWN, FLAT AFFECT. TACHYCARDI, PULSE 112. IV FLUIDS STARTED PER ORDERS. MEDIPORT IN R CHEST ALREADY ACCESSED UPON ARRIVAL. BLOOD RETURN ASSESSED. PT DENIES PAIN. REQUESTING ORANGE JUICE. COLOSTOMY IN PLACE TO L ABD. PT REFUSED THOROUGH ASSESSMENT OF SKIN. ORIENTED TO ROOM AND CALL BUTTON. BED ALARM ON FOR SAFETY. BED LOW, CALL BUTTON IN REACH. REPORT GIVEN TO DAY RN.
--- NOTE | 2020-07-04 12:29 | NUR ---
FEBRILE, INDIGESTION TEMPERATURE TRENDING UPWARDS DESPITE MEDICATING WITH TYLENOL. ROOM TEMP REDUCED AND COVERS REMOVED. PATIENT IS SHIVERING AND C/O INDIGESTION. REFUSING ICE PACKS TO COOL DOWN. T.O. FROM DR. VARGAS TO GIVE 650 MG TYLENOL STAT AND RESUME HOME MEDICATION PRILOSEC @ 20 MG BID. EMAR UPDATED.
--- NOTE | 2020-07-04 17:24 | NUR ---
Discharge Summary A/Ox4, pleasant and cooperative with care. Tele discontinued per V.O. from Dr. Regan. Diet order updated to reflect dislikes (dairy) d/t interaction with chemo drug per patient state. Has been febrile, medicated with tylenol and abx changed. Dr. Regan aware. Up to bathroom c SBA and FWW. Calls for needs, bed alarm on for safety. Denies pain, nausea, vomiting. Colostomy to R lower abdomen, patient manages on own. WCTM and report to oncoming RN.
--- NOTE | 2020-07-04 17:32 | NUR ---
Spiritual care note: Ms. Nunn was politely dismissive of mail room clerk services.
--- NOTE | 2020-07-04 18:40 | NUR ---
[facility] visit for advanced care planning conversation re: code status per RN request earlier today. Pt initially stated she did not want intubation or prolonged life support but would be ok with CPR "to try to bring me back". I spoke with pt re: the difficulty of a successful resuscitation effort without respiratory support and intubation if needed. We discussed different scenarios in relationship to pt's illness, which is primarily colon cancer. Advanced care planning booklet left with pt to review. She states she doesn't have reading glasses and I offered to read the chapter on CPR to her and she declined. She stated her daughter can read it to her later. I planned with her to return tomorrow after she has time to discuss her wishes with her chica and to do a more full assessment of needs. Pt denies pain or distress at this time. She appears calm and I did not note any nonverbal indicators of pain during my visit. She was watching TV and did not have any visitors when I arrived. RN in room to tend to her IV for part of our visit. Will review again tomorrow and relay pt's wishes to her Dr if they are different than her current orders for FULL CODE.
--- NOTE | 2020-07-05 04:54 | NUR ---
SHIFT SUMMARY NO ACUTE CHANGES THIS SHIFT, MEDICATED 1X FOR TEMP (101.1) THIS AM, NO OTHER C/O ANY KIND, SLEPT T/O THE NIGHT, BEDRESTING AT THIS TIME, CALL LIGHT IN REACH, WILL CONT TO MONITOR UNTIL REPORT GIVEN TO DAY RN.
[2020-07-05 04:58] LABS: Hematocrit 22.8 % (33.0-51.0); Hemoglobin 7.8 g/dL (11.5-16.0); Mean Corpuscular HGB 30.5 pg (26.0-34.0); Mean Corpuscular HGB Conc 34.2 g/dL (31.5-36.5); Mean Corpuscular Volume 89 fL (80-100); Mean Platelet Volume 10.3 fL (9.1-12.4); RDW Coefficient Variation 13.9 % (11.7-14.2); RDW Standard Deviation 44.6 fL (35.1-46.3); Red Blood Cell Count 2.56 M/mm3 (3.80-5.20)
[2020-07-05 05:02] LABS: BASOPHILS PERCENT AUTO 0 % (0-2); EOSINOPHILS PERCENT AUTO 0 % (0-6); IMMATURE GRAN ABSOLUTE AUTO 0.02 K/mm3 (0.00-0.10); IMMATURE GRAN PERCENT AUTO 7 % (0-1); LYMPHOCYTES ABSOLUTE AUTO 0.24 K/mm3 (0.84-5.20); LYMPHOCYTES PERCENT AUTO 83 % (21-46); MONOCYTES ABSOLUTE AUTO 0.01 K/mm3 (0.16-1.47); MONOCYTES PERCENT AUTO 3 % (4-13); NEUTROPHILS ABSOLUTE AUTO 0.02 K/mm3 (1.96-9.15); NEUTROPHILS PERCENT AUTO 7 % (41-73); Platelet Count 46 K/mm3 (150-400)
[2020-07-05 05:03] LABS: White Blood Cell Count 0.29 K/mm3 (4.00-11.30)
[2020-07-05 05:23] LABS: Anion Gap 9 mmol/L (6-16); Blood Urea Nitrogen 12 mg/dL (8-24); Bun/Creatinine Ratio 19.3 (12.0-20.0); CO2, Blood 20 mmol/L (21-32); Calcium, Blood 7.9 mg/dL (8.5-10.1); Chloride, Blood 105 mmol/L (98-108); Creatinine, Blood 0.62 mg/dL (0.40-1.00); Glomerular Filtration Rate >60 (60-); Glucose, Blood 127 mg/dL (70-99); Potassium, Blood 2.9 mmol/L (3.5-5.5); Sodium, Blood 134 mmol/L (136-145)
--- NOTE | 2020-07-05 19:17 | NUR ---
PT A&O AND ABLE TO MAKE NEEDS KNONW. PT 1X SBA WITH FWW. IN AM PT HAD A LOW BP, DR NOTIFIED AND 500ML BOLUS ORDERED. PT REPORTED FEELING COLD AND HAD A TEMPETURE. MEDICATED WITH TYLENOL. PT HAS A COLOSTOMY THAT SHE CARES FOR HERSELF. PT DENIES P/N/V THIS SHIFT. PT CURENTLY SLEEPING W/ CALL LIGHT NEXT TO HER. SHIFT REPORT GIVEN TO NIGHT RN.
--- NOTE | 2020-07-05 19:21 | NUR ---
RESTING QUIETLY WITH HOB ELEVATED AT APPROX 40 DEGREES. IVF RUNNING TKO. NO NOTED S/S ACUTE DISTRESS. CALL LIGHT IN REACH. RAILS UP X 3
--- NOTE | 2020-07-06 03:18 | NUR ---
CEREAL SUPERVISOR SUMMARY WAS RESTING QUIETLY AT SHIFT COMMENCE WITH IVF AT KVO. AWAKENED LATER, DISCUSSED MEDICAIONS WITH NURSE. COMPLIANT WITH TREATMENT. IVF TKO WHEN NOT ON ANTIBIOTICS. NEUTROPENIC PRECAUTIONS MAINTAINED. CALL LIGHT IN REACH. COLOSTOMY EMPTIED. PT DENTIED DISTRESS. VSS. WILL CONTINUE TO MONITOR
[2020-07-06 06:01] LABS: Hematocrit 20.7 % (33.0-51.0); Hemoglobin 7.1 g/dL (11.5-16.0); Mean Corpuscular HGB 30.6 pg (26.0-34.0); Mean Corpuscular HGB Conc 34.3 g/dL (31.5-36.5); Mean Corpuscular Volume 89 fL (80-100); Mean Platelet Volume 10.5 fL (9.1-12.4); RDW Coefficient Variation 14.1 % (11.7-14.2); Red Blood Cell Count 2.32 M/mm3 (3.80-5.20)
[2020-07-06 06:05] LABS: BASOPHILS PERCENT AUTO 0 % (0-2); EOSINOPHILS ABSOLUTE AUTO 0.01 K/mm3 (0.00-0.68); EOSINOPHILS PERCENT AUTO 2 % (0-6); IMMATURE GRAN PERCENT AUTO 0 % (0-1); LYMPHOCYTES ABSOLUTE AUTO 0.43 K/mm3 (0.84-5.20); LYMPHOCYTES PERCENT AUTO 81 % (21-46); MONOCYTES ABSOLUTE AUTO 0.02 K/mm3 (0.16-1.47); MONOCYTES PERCENT AUTO 4 % (4-13); NEUTROPHILS ABSOLUTE AUTO 0.07 K/mm3 (1.96-9.15); NEUTROPHILS PERCENT AUTO 13 % (41-73)
[2020-07-06 06:06] LABS: Platelet Count 44 K/mm3 (150-400); White Blood Cell Count 0.53 K/mm3 (4.00-11.30)
[2020-07-06 06:14] LABS: Anion Gap 6 mmol/L (6-16); Blood Urea Nitrogen 13 mg/dL (8-24); Bun/Creatinine Ratio 22.1 (12.0-20.0); CO2, Blood 20 mmol/L (21-32); Calcium, Blood 7.9 mg/dL (8.5-10.1); Chloride, Blood 108 mmol/L (98-108); Creatinine, Blood 0.59 mg/dL (0.40-1.00); Glomerular Filtration Rate >60 (60-); Glucose, Blood 97 mg/dL (70-99); Potassium, Blood 3.1 mmol/L (3.5-5.5); Sodium, Blood 134 mmol/L (136-145)
--- NOTE | 2020-07-06 18:00 | NUR ---
SHIFT SUMMARY PT A&OX4, ABLE TO MAKE NEEDS KNOWN, PLEASANT AND COOPERATIVE TO CARE. NO C/O PAIN OR ANY DISCOMFORT THIS SHIFT. NO C/O CP, SOB, OR N&V. PT NOTED TO HAVE POOR APPETITE, SNACKS OFFERED. PT REQUIRES SBA WHEN AMBULATING IN ROOM / TO THE BATHROOM. NEUTROPENIC PRECAUTIONS IN PLACE. BED AT LOWEST POSITION, CALL LIGHT WITHIN REACH.
[2020-07-07 04:53] LABS: Hematocrit 22.8 % (33.0-51.0); Hemoglobin 7.9 g/dL (11.5-16.0); Mean Corpuscular HGB 30.5 pg (26.0-34.0); Mean Corpuscular HGB Conc 34.6 g/dL (31.5-36.5); Mean Corpuscular Volume 88 fL (80-100); Mean Platelet Volume 10.4 fL (9.1-12.4); RDW Coefficient Variation 14.2 % (11.7-14.2); Red Blood Cell Count 2.59 M/mm3 (3.80-5.20)
[2020-07-07 04:59] LABS: BASOPHILS PERCENT AUTO 0 % (0-2); EOSINOPHILS PERCENT AUTO 0 % (0-6); IMMATURE GRAN ABSOLUTE AUTO 0.03 K/mm3 (0.00-0.10); IMMATURE GRAN PERCENT AUTO 4 % (0-1); LYMPHOCYTES ABSOLUTE AUTO 0.66 K/mm3 (0.84-5.20); LYMPHOCYTES PERCENT AUTO 84 % (21-46); MONOCYTES ABSOLUTE AUTO 0.07 K/mm3 (0.16-1.47); MONOCYTES PERCENT AUTO 9 % (4-13); NEUTROPHILS ABSOLUTE AUTO 0.03 K/mm3 (1.96-9.15); NEUTROPHILS PERCENT AUTO 4 % (41-73); Platelet Count 39 K/mm3 (150-400); White Blood Cell Count 0.79 K/mm3 (4.00-11.30)
--- NOTE | 2020-07-07 05:08 | NUR ---
SHIFT SUMMARY LYING IN LOW FOWLERS WITH EYES CLOSED, HAS RESTED WELL OFF AND ON. AAO X3, GATSE, FOLLOWS ALL COMMANDS. HAS BEEN PLEASANT AND COOPERATIVE WITH CARE AFTER VENTING HER FRUSTRATION WITH ASKING FOR THINGS AND NOT RECEIVEING THEM. RCW MEDIPORT IS PATENT, FLUSHING WITH EASE WHILE INFUSING D51/2NS WITH 20MEQ KCL. SAFETY MEASURES IN PLACE. WILL CONTINUE TO MONITOR AND ADDRESS NEEDS AND CHANGES THROUGHOUT REMAINDER OF SHIFT, AND GIVE HAND OFF TO ONCOMING SHIFT USING SBAR.
[2020-07-07 05:12] LABS: Anion Gap 6 mmol/L (6-16); Blood Urea Nitrogen 11 mg/dL (8-24); Bun/Creatinine Ratio 21.6 (12.0-20.0); CO2, Blood 20 mmol/L (21-32); Calcium, Blood 7.9 mg/dL (8.5-10.1); Chloride, Blood 107 mmol/L (98-108); Creatinine, Blood 0.51 mg/dL (0.40-1.00); Glomerular Filtration Rate >60 (60-); Glucose, Blood 99 mg/dL (70-99); Potassium, Blood 3.4 mmol/L (3.5-5.5); Sodium, Blood 133 mmol/L (136-145)
--- NOTE | 2020-07-07 16:09 | NUR ---
SHIFT SUMMARY PT A&OX4, ABLE TO MAKE NEEDS KNOWN. PLEASANT AND COOPERATIVE TO CARE. NO ACUTE CHANGES NOTED TO PT THIS SHIFT. NO C/O PAIN OR ANY DISCOMFORT. DENIES CP, SOB, OR N&V. PT REQUIRES SBA W/ FWW TO AMBULATE IN THE ROOM / BATHROOM. NO C/O DYSURIA OR ANY OTHER DISCOMFORT. BED AT LOWEST POSITION. CALL LIGHT WITHIN REACH.
[2020-07-08 05:20] LABS: BASOPHILS ABSOLUTE AUTO 0.01 K/mm3 (0.00-0.23); BASOPHILS PERCENT AUTO 0 % (0-2); EOSINOPHILS ABSOLUTE AUTO 0.04 K/mm3 (0.00-0.68); EOSINOPHILS PERCENT AUTO 2 % (0-6); Hematocrit 24.6 % (33.0-51.0); Hemoglobin 8.5 g/dL (11.5-16.0); Mean Corpuscular HGB 30.4 pg (26.0-34.0); Mean Corpuscular HGB Conc 34.6 g/dL (31.5-36.5); Mean Corpuscular Volume 88 fL (80-100); Mean Platelet Volume 11.7 fL (9.1-12.4); RDW Coefficient Variation 14.4 % (11.7-14.2); RDW Standard Deviation 43.2 fL (35.1-46.3); White Blood Cell Count 2.31 K/mm3 (4.00-11.30)
[2020-07-08 05:25] LABS: IMMATURE GRAN PERCENT AUTO 0 % (0-1); LYMPHOCYTES PERCENT AUTO 91 % (21-46); MONOCYTES ABSOLUTE AUTO 0.11 K/mm3 (0.16-1.47); MONOCYTES PERCENT AUTO 5 % (4-13); NEUTROPHILS ABSOLUTE AUTO 0.05 K/mm3 (1.96-9.15); NEUTROPHILS PERCENT AUTO 2 % (41-73); Platelet Count 50 K/mm3 (150-400)
[2020-07-08 05:33] LABS: Anion Gap 7 mmol/L (6-16); Blood Urea Nitrogen 11 mg/dL (8-24); Bun/Creatinine Ratio 20.3 (12.0-20.0); CO2, Blood 21 mmol/L (21-32); Calcium, Blood 8.1 mg/dL (8.5-10.1); Chloride, Blood 105 mmol/L (98-108); Creatinine, Blood 0.54 mg/dL (0.40-1.00); Glomerular Filtration Rate >60 (60-); Glucose, Blood 99 mg/dL (70-99); Potassium, Blood 3.4 mmol/L (3.5-5.5); Sodium, Blood 133 mmol/L (136-145)
--- NOTE | 2020-07-08 06:52 | NUR ---
SUMMARY NO NEW ISSUES NOTED. PT SLEPT WELL T/O SHIFT. PT CALL LIGHT IN REACH.
[2020-07-08] MEDS ORDERED: TUMS500 MG PO (11:44)
[2020-07-08] MEDS ORDERED: OMEP20ER PO (11:45)
[2020-07-08] MEDS ORDERED: ONDA4ODT MM (11:47)
[2020-07-08] MEDS ORDERED: CIPR500 PO (11:47)
--- NOTE | 2020-07-08 15:06 | NUR ---
DISCHARGE SUMMARY PT DISCHARGE TODAY 07/08/20 AT 1440. NO ISSUES OR CONCERNS NOTED FROM PT T/O DISCHARGE PROCESS. PT VERBALIZED UNDERSTANDING OF DISCHARGE ORDERS AND EDUCATION. DEACCESSED MEDIPORT ON RUCW AREA PER PROTOCOL. NO COMPLAINTS OF ANY PAIN OR ANY DISCOMFORT. PT'S DAUGHTER PRESENT T/O D/C PROCESS. DISCHARGE PAPERWORK GIVEN TO PT AT D/C.
== END 2020-07-08 14:36 | disposition home or self-care (01) | DRG 871 ==
LOC: ER 22:07 → MEDS 07-04 04:29
PROVIDERS: Emergency Medicine; Family Medicine; Internal Medicine; ADMIT Internal Medicine
DX: A41.9 Sepsis, unspecified organism (principal); G92 Toxic encephalopathy; D61.810 Antineoplastic chemotherapy induced pancytopenia; N39.0 Urinary tract infection, site not specified; C18.9 Malignant neoplasm of colon, unspecified; E87.1 Hypo-osmolality and hyponatremia; Z68.1 Body mass index [BMI] 19.9 or less, adult; E44.1 Mild protein-calorie malnutrition; Z79.82 Long term (current) use of aspirin; Z87.891 Personal history of nicotine dependence; T45.1X5A Adverse effect of antineoplastic and immunosuppressive drugs, initial encounter; Y92.9 Unspecified place or not applicable; D70.9 Neutropenia, unspecified; K21.9 Gastro-esophageal reflux disease without esophagitis; E87.6 Hypokalemia; E86.0 Dehydration; R41.0 Disorientation, unspecified
CPT/HCPCS: 36415; 70450; 71045; 80048; 80053; 81001; 83605; 85025; 85027; 87040; 87077; 87086; 87186; 93005; 93010; 96365; 99285-25; A9270; J0692; J0696; J1642; J3480; J7030; J7040; Q5110

== ENCOUNTER 2020-09-05 12:02 | Day surgery (SDC) | payer OTHER ==
[~2020-09-05 12:02] MED LIST changes: +CIPR500 PO; +OMEP20ER PO; +ONDA4ODT MM; +TUMS500 MG PO
== END 2020-09-05 22:41 | disposition home or self-care (01) ==
LOC: WOUND 12:02
DX: R23.8 Other skin changes (principal); Z93.2 Ileostomy status; C18.9 Malignant neoplasm of colon, unspecified; Z88.0 Allergy status to penicillin; Z88.1 Allergy status to other antibiotic agents
CPT/HCPCS: G0463

== ENCOUNTER 2020-11-11 05:50 | Day surgery (SDC) | payer OTHER | END 2020-11-11 22:51 | disposition home or self-care (01) | LOC: WOUND 05:50 | DX: R23.8 Other skin changes (principal); Z93.2 Ileostomy status; Z88.0 Allergy status to penicillin | CPT/HCPCS: G0463 ==

== ENCOUNTER 2021-01-10 09:15 | Inpatient (IN) | payer OTHER ==
[~2021-01-10] VITALS: Ht 154.9 cm; Wt 44.0 kg
[~2021-01-10 09:15] MED LIST changes: +Zofran4 MG PO
[2021-01-10 10:41] LABS: Hematocrit 33.5 % (33.0-51.0); Hemoglobin 11.2 g/dL (11.5-16.0); Mean Corpuscular HGB 31.4 pg (26.0-34.0); Mean Corpuscular HGB Conc 33.4 g/dL (31.5-36.5); Mean Corpuscular Volume 94 fL (80-100); Mean Platelet Volume 9.3 fL (9.1-12.4); Platelet Count 306 K/mm3 (150-400); RDW Coefficient Variation 17.9 % (11.7-14.2); RDW Standard Deviation 62.1 fL (35.1-46.3); Red Blood Cell Count 3.57 M/mm3 (3.80-5.20); White Blood Cell Count 22.78 K/mm3 (4.00-11.30)
[2021-01-10 11:02] LABS: Alanine Aminotransfer (ALT/SGP 15 U/L (12-78); Albumin, Blood 2.7 g/dL (3.4-5.0); Albumin/Globulin Ratio 0.7 (0.8-1.8); Alk Phos 109 U/L (50-136); Anion Gap 11 mmol/L (6-16); Aspartate Aminotrans (AST/SGOT 16 U/L (12-37); Bilirubin, Total 0.9 mg/dL (0.1-1.0); Blood Urea Nitrogen 43 mg/dL (8-24); Bun/Creatinine Ratio 51.4 (12.0-20.0); CO2, Blood 32 mmol/L (21-32); Calcium, Blood 8.9 mg/dL (8.5-10.1); Chloride, Blood 93 mmol/L (98-108); Creatinine, Blood 0.84 mg/dL (0.40-1.00); Globulin, Blood 3.8 g/dL (2.2-4.0); Glomerular Filtration Rate >60 (60-); Glucose, Blood 183 mg/dL (70-99); Potassium, Blood 2.8 mmol/L (3.5-5.5); Sodium, Blood 136 mmol/L (136-145); Total Protein, Blood 6.5 g/dL (6.4-8.2)
[2021-01-10 12:01] LABS: BAND PERCENT MAN 18 % (0-8); BASOPHILS PERCENT MAN 0 % (0-2); EOSINOPHILS PERCENT MAN 0 % (0-6); LYMPHOCYTES ABSOLUTE MAN 1.13 K/mm3 (0.84-5.20); LYMPHOCYTES PERCENT MAN 5 % (21-46); MONOCYTES PERCENT MAN 0 % (4-13); NEUTROPHILS ABSOLUTE MAN 21.64 K/mm3 (1.96-9.15); SEG NEUTROPHILS PERCENT MAN 77 % (41-73); TOTAL CELLS COUNTED 100
[2021-01-10 12:18] LABS: Influenza A, PCR NEGATIVE (NEGATIVE); Influenza B, PCR NEGATIVE (NEGATIVE); Resp Syncytial Virus, PCR NEGATIVE (NEGATIVE); SARS-Cov-2 (COVID-19) PCR, MMC NEGATIVE (NEGATIVE)
--- NOTE | 2021-01-10 18:23 | NUR ---
SHIFT SUMMARY PATIENT ADMITTED TO UNIT FROM ED, AOX4 FOR ABD PAIN. PATIENT DX WTIH PARTIAL SBO. ABD SOFT/TENDER. ILLEOSMOMY IN PLACE WITH GOOD SEAL, STOMA RED/PROTRUDING. IVF INFUSING, K RIDER GOING. PATIENT REQUESED PAIN MEDICATION MILD PAIN TO ABDOMEN. IV DILAUDID GIVEN WITH RELIEF. PATIENT TOLERATING CLD
--- NOTE | 2021-01-11 04:50 | NUR ---
SHIFT SUMMARY: LULÚ IS A&OX4. VSS, NO ACUTE EVENTS OVERNIGHT. SHE IS A STANDBY ASSIST WITH THE FWW TO THE BATHROOM. IV TO R AC PATENT. SHE DID HAVE ONE EPISODE OF EMESIS THIS SHIFT. SHE REPORTS ADEQUATE PAIN CONTROL WITH 0.5 MG OF DILAUDID. SHE USES THE CALL LIGHT APPROPRIATELY AND IS ABLE TO MAKE HER NEEDS KNOWN. SHE IS LYING IN BED WITH THE CALL LIGHT IN REACH. WILL REPORT TO DAY SHIFT RN.
[2021-01-11 04:58] LABS: Hematocrit 27.2 % (33.0-51.0); Hemoglobin 9.1 g/dL (11.5-16.0); Mean Corpuscular HGB 31.4 pg (26.0-34.0); Mean Corpuscular HGB Conc 33.5 g/dL (31.5-36.5); Mean Corpuscular Volume 94 fL (80-100); Mean Platelet Volume 9.6 fL (9.1-12.4); Platelet Count 220 K/mm3 (150-400); RDW Standard Deviation 62.1 fL (35.1-46.3); White Blood Cell Count 22.72 K/mm3 (4.00-11.30)
[2021-01-11 05:47] LABS: BAND PERCENT MAN 14 % (0-8); BASOPHILS PERCENT MAN 0 % (0-2); EOSINOPHILS PERCENT MAN 0 % (0-6); LYMPHOCYTES ABSOLUTE MAN 1.13 K/mm3 (0.84-5.20); LYMPHOCYTES PERCENT MAN 5 % (21-46); METAMYELOCYTE ABSOLUTE MAN 0.22 K/mm3 (0.00-0.00); METAMYELOCYTE PERCENT MAN 1 % (0-0); MONOCYTES ABSOLUTE MAN 0.22 K/mm3 (0.16-1.47); MONOCYTES PERCENT MAN 1 % (4-13); NEUTROPHILS ABSOLUTE MAN 21.12 K/mm3 (1.96-9.15); SEG NEUTROPHILS PERCENT MAN 79 % (41-73); TOTAL CELLS COUNTED 100
[2021-01-11 05:58] LABS: Albumin, Blood 2.2 g/dL (3.4-5.0); Anion Gap 11 mmol/L (6-16); Blood Urea Nitrogen 27 mg/dL (8-24); Bun/Creatinine Ratio 48.2 (12.0-20.0); CO2, Blood 27 mmol/L (21-32); Calcium, Blood 8.2 mg/dL (8.5-10.1); Chloride, Blood 102 mmol/L (98-108); Creatinine, Blood 0.56 mg/dL (0.40-1.00); Glomerular Filtration Rate >60 (60-); Glucose, Blood 71 mg/dL (70-99); Magnesium, Blood 1.5 mg/dL (1.6-2.4); Phosphorus, Blood 2.7 mg/dL (2.5-4.9); Potassium, Blood 3.3 mmol/L (3.5-5.5); Sodium, Blood 140 mmol/L (136-145)
[2021-01-11 09:02] LABS: Hemoglobin 9.4 g/dL (11.5-16.0); Mean Corpuscular HGB 31.8 pg (26.0-34.0); Mean Corpuscular HGB Conc 33.6 g/dL (31.5-36.5); Mean Corpuscular Volume 95 fL (80-100); Mean Platelet Volume 9.8 fL (9.1-12.4); Platelet Count 229 K/mm3 (150-400); RDW Coefficient Variation 17.9 % (11.7-14.2); RDW Standard Deviation 62.2 fL (35.1-46.3); Red Blood Cell Count 2.96 M/mm3 (3.80-5.20); White Blood Cell Count 21.55 K/mm3 (4.00-11.30)
[2021-01-11 09:40] LABS: BAND PERCENT MAN 10 % (0-8); BASOPHILS PERCENT MAN 0 % (0-2); EOSINOPHILS PERCENT MAN 0 % (0-6); LYMPHOCYTES PERCENT MAN 7 % (21-46); METAMYELOCYTE ABSOLUTE MAN 0.43 K/mm3 (0.00-0.00); METAMYELOCYTE PERCENT MAN 2 % (0-0); MONOCYTES ABSOLUTE MAN 0.64 K/mm3 (0.16-1.47); MONOCYTES PERCENT MAN 3 % (4-13); NEUTROPHILS ABSOLUTE MAN 18.96 K/mm3 (1.96-9.15); SEG NEUTROPHILS PERCENT MAN 78 % (41-73); TOTAL CELLS COUNTED 100
[2021-01-12 04:15] LABS: Hematocrit 26.5 % (33.0-51.0); Mean Corpuscular HGB 31.3 pg (26.0-34.0); Mean Corpuscular Volume 92 fL (80-100); Platelet Count 199 K/mm3 (150-400); RDW Coefficient Variation 17.5 % (11.7-14.2); Red Blood Cell Count 2.88 M/mm3 (3.80-5.20); White Blood Cell Count 16.79 K/mm3 (4.00-11.30)
[2021-01-12 04:39] LABS: Albumin, Blood 2.2 g/dL (3.4-5.0); Anion Gap 9 mmol/L (6-16); Blood Urea Nitrogen 26 mg/dL (8-24); Bun/Creatinine Ratio 51.9 (12.0-20.0); CO2, Blood 29 mmol/L (21-32); Calcium, Blood 7.9 mg/dL (8.5-10.1); Chloride, Blood 99 mmol/L (98-108); Glomerular Filtration Rate >60 (60-); Glucose, Blood 81 mg/dL (70-99); Magnesium, Blood 2.1 mg/dL (1.6-2.4); Phosphorus, Blood 2.6 mg/dL (2.5-4.9); Potassium, Blood 3.4 mmol/L (3.5-5.5); Sodium, Blood 137 mmol/L (136-145)
--- NOTE | 2021-01-12 04:52 | NUR ---
PT IN BED AND IS RESTING IN STABLE CONDITION, NO DISTRESS NOTED. ALERT AND ORIENTED, ASSISTED WITH CARE AND ADLS, ASSISTED WITH TOILETING AND BATHROOM NEEDS. CALL LIGHT PROVIDED AND ENCOURAGED TO CALL FOR HELP WHEN ASSISTANCE IS NEEDED.
[2021-01-12 05:37] LABS: BAND PERCENT MAN 3 % (0-8); BASOPHILS PERCENT MAN 0 % (0-2); EOSINOPHILS PERCENT MAN 0 % (0-6); LYMPHOCYTES ABSOLUTE MAN 2.51 K/mm3 (0.84-5.20); LYMPHOCYTES PERCENT MAN 15 % (21-46); MONOCYTES ABSOLUTE MAN 0.16 K/mm3 (0.16-1.47); MONOCYTES PERCENT MAN 1 % (4-13); SEG NEUTROPHILS PERCENT MAN 81 % (41-73); TOTAL CELLS COUNTED 100
--- NOTE | 2021-01-12 16:09 | NUR ---
SHIFT SUMMARY PT A&OX4, VSS/RA, VOIDING WELL, SBA/FWW TO BRP, PAIN MANAGED WITH 0.5 MG DILAUDID. ILEOSTOMY WITH LOW AMT OF YELLOW LIQUID STOOL OUT; PT ABLE TO MAINTAIN ILEOSTOMY. WILL REPORT TO ONCOMING NOC RN.
[2021-01-13 04:15] LABS: BASOPHILS ABSOLUTE AUTO 0.05 K/mm3 (0.00-0.23); BASOPHILS PERCENT AUTO 1 % (0-2); Hematocrit 25.5 % (33.0-51.0); Hemoglobin 8.5 g/dL (11.5-16.0); LYMPHOCYTES ABSOLUTE AUTO 1.37 K/mm3 (0.84-5.20); LYMPHOCYTES PERCENT AUTO 23 % (21-46); MONOCYTES ABSOLUTE AUTO 0.32 K/mm3 (0.16-1.47); MONOCYTES PERCENT AUTO 6 % (4-13); Mean Corpuscular HGB 31.3 pg (26.0-34.0); Mean Corpuscular HGB Conc 33.3 g/dL (31.5-36.5); Mean Corpuscular Volume 94 fL (80-100); Mean Platelet Volume 9.5 fL (9.1-12.4); Platelet Count 167 K/mm3 (150-400); RDW Coefficient Variation 17.1 % (11.7-14.2); RDW Standard Deviation 57.6 fL (35.1-46.3); Red Blood Cell Count 2.72 M/mm3 (3.80-5.20); White Blood Cell Count 5.87 K/mm3 (4.00-11.30)
[2021-01-13 04:21] LABS: EOSINOPHILS ABSOLUTE AUTO 0.05 K/mm3 (0.00-0.68); EOSINOPHILS PERCENT AUTO 1 % (0-6); IMMATURE GRAN ABSOLUTE AUTO 0.05 K/mm3 (0.00-0.10); IMMATURE GRAN PERCENT AUTO 1 % (0-1); NEUTROPHILS ABSOLUTE AUTO 4.03 K/mm3 (1.96-9.15); NEUTROPHILS PERCENT AUTO 69 % (41-73)
[2021-01-13 04:44] LABS: Anion Gap 8 mmol/L (6-16); Blood Urea Nitrogen 19 mg/dL (8-24); Bun/Creatinine Ratio 39.8 (12.0-20.0); CO2, Blood 30 mmol/L (21-32); Calcium, Blood 7.8 mg/dL (8.5-10.1); Chloride, Blood 99 mmol/L (98-108); Creatinine, Blood 0.48 mg/dL (0.40-1.00); Glomerular Filtration Rate >60 (60-); Glucose, Blood 113 mg/dL (70-99); Magnesium, Blood 1.6 mg/dL (1.6-2.4); Phosphorus, Blood 2.3 mg/dL (2.5-4.9); Potassium, Blood 3.3 mmol/L (3.5-5.5); Sodium, Blood 137 mmol/L (136-145)
--- NOTE | 2021-01-13 06:28 | NUR ---
PT IS IN BED AND IS RESTING COMFORTABLY IN STABLE CONDITION, ASSISTED WITH CARE AND ADLS, ASSISTED WITH BATHROOM AND TOILETING NEEDS, MEDICATED INDICATED. ENCOURAGED TO CALL FOR HELP WHEN ASSISTANCE IS NEEDED SHE IS MONITORED
--- NOTE | 2021-01-13 10:23 | NUR ---
PT NOT ABLE TO TOLERATE POTASSIUM AT SET RATE DECREASED TO 25ML/HR CONCURRENT W/PRIMARY FLUIDS. NOW REPORTS TOLERABLE.
--- NOTE | 2021-01-13 12:51 | NUR ---
PT WORKING W/RAKEL FROM OT
--- NOTE | 2021-01-13 12:53 | NUR ---
Initial Assessment with [facility] Filter Tank Tender Helper 1. Who did you speak with? Spoke with patient 2. What is the patient's prior level of functions? Patient lives with her daughter whom provides caregiving and support as needed. She was discharged from [facility] in [place] two weeks prior to admission and reported that she had surgery there to correct a small bowel obstruction but was told that it would likely obstruct again very quickly. 3. What is the patient's current living situation? Patient lives with her daughter whom provides caregiving and support as needed. 4. Is the patient and/or family able to provide transportation to and from doctor's appointments and berry picker prescriptions? Daughter provides transportation as needed. 5. Does patient still drive? No 6. POA/PCP/NOK: PCP-PCP is Maury Byrd 7. ANTICIPATED DISCHARGE NEEDS/GOALS: Awaiting oncology assessment/evaluation -Return to residence: TBD -DME: TBD -Home Health: TBD -Hospice: TBD 8. List barriers to discharge: No barriers on this date. 9. Discharge Plan: TBD 10. PCP Follow up appointment: Will be scheduled within seven calendar days of discharge. 11. OTHER COMMENTS: None
--- NOTE | 2021-01-13 13:05 | NUR ---
DR MO IN TO SEE PT.
--- NOTE | 2021-01-13 13:33 | NUR ---
DR MO GAVE VERBAL ORDER TO PLACE ON COMFORT CARE NOTIFIED PALLIATIVE CARE AND DR MARQUEZ.
--- NOTE | 2021-01-13 14:21 | NUR ---
TANNRE BRYAN, PALLIATIVE CARE RN IN TO SEE PT AND DAUGHTER.
--- NOTE | 2021-01-13 16:34 | NUR ---
PT READING DENIES ANY NEEDS AT THIS TIME. CALL LIGHT IN REACH.
--- NOTE | 2021-01-13 17:04 | NUR ---
SUMMARY PT WORKED W/OT TODAY. DR MO IN TO SEE PT THIS AFTERNOON. PT TRANSITIONED TO COMFORT CARE. IV FLUIDS FINISHING UP. MEDICATED ONCE DURING SHIFT FOR NAUSEA W/IV ZOFRAN. PT READING BOOK IN BED. DENIES ANY NEEDS AT THIS TIME. ILEOSTOMY PUTTING OUT THIN FERRER FLUID.
--- NOTE | 2021-01-13 18:42 | NUR ---
REPORT GIVEN TO ONCOMING SHIFT.
--- NOTE | 2021-01-14 06:06 | NUR ---
Pt is in bed at this time and is resting quietly with eyes closed. condition is stable. She is assisted wih her care and adls, medicated as indicated. Has reported abdominal pain that is relived PRN IV morphine, no other complaints. She is able to ambulate to the bathroom independently, care for her ileostomy with no difficulty. She is encouraged to call for help when assistance is needed as she is monitored. Call hough provided.
--- NOTE | 2021-01-14 14:45 | NUR ---
Left messge with [employer] Watch Assembler Vanita Harris [phone]. Application in process.
--- NOTE | 2021-01-14 18:50 | NUR ---
SHIFT SUMMARY PT IND IN THE ROOM AND ON COMFORT CARE. AWAITING PLACEMENT. MEDICATED FOR PAIN PRN WITH GOOD EFFECT.
--- NOTE | 2021-01-15 07:08 | NUR ---
Pt is bed at this time where she remains much of the night and is resting comfortably. AAOx4, condition is stable. Has reported abd pain and was medicated as indicated with positive result. She is assisted with care and ADLs, assisted with bathroom and transfer needs. Her call hough was placed near her and was reminded to call for help when assistance is needed as she is monitored.
--- NOTE | 2021-01-15 07:16 | NUR ---
PT WITH C/O 8/10 ABD PAIN, MEDICATED WITH 5MG MORPHINE PER EMAR. PT DOING OWN PERSONAL CARE AND REPOSITIONING, DENIES NEED FOR HELP.
--- NOTE | 2021-01-15 09:43 | NUR ---
PT APPEARS TO BE RESTING COMFORTABLY AT THIS TIME. DENIES PAIN OR NEED FOR ASSISTANCE WITH ANY PERSONAL CARE.
--- NOTE | 2021-01-15 13:11 | NUR ---
PT REPORTED 8/10 PAIN, MEDICATED PER EMAR AND REPORTED RELIEF. INDEPENDENT IN ROOM AND WITH ALL ADL'S
--- NOTE | 2021-01-15 14:12 | NUR ---
will follow up with physician for bowel care.
--- NOTE | 2021-01-15 15:13 | NUR ---
PT VOMITED APROX 150ML ORANGISH/CLEAR LIQUID. PT REPORTS THAT SHE IS NO LONGER NAUSEATED, STATES SHE DRANK "PINEAPPLE JUICE AT LUNCH" AND THINKS IT WAS "TOO MUCH ACID" DENIES THE NEED FOR ANTI-NAUSEA MEDICATION.
--- NOTE | 2021-01-15 17:50 | NUR ---
PT HAS APPEARED TO SLEEP COMFORTABLY FOLLOWING ADMINISTRATION OF PHENERGAN FOR CONTINUED N/V. PT AWAKENS EASILY TO VERBAL STIMULI. SMALL AMT OF YELLOW/BROWN OUTPUT PRESENT IN OSTOMY. PT HAS CONTINUED WITH ICE CHIPS AND SIPS OF CLEAR LIQUID THIS SHIFT.
--- NOTE | 2021-01-16 06:49 | NUR ---
PT IN BED AND IS RESTING IN STABLE CONDITION, NO PAIN, NO DISCOMFORT. ASSISTED WITH CARE AND ADLS, MEDICATED INDICATED. CALL ROSE GIVEN TO HER AND ENCOURAGED TO CALL FOR HELP WHEN ASSISTANCE IS NEEDED. SHE IS MONITORED.
--- NOTE | 2021-01-16 08:13 | NUR ---
AT TIME OF ASSESSMENT 0715 PT APPEARED TO BE RESTING COMFORTABLY. REPORTS PAIN 2/10 TOLERABLE AT THIS TIME. PT TAKING SMALL SIPS OF CLEAR LIQUIDS AND ICE CHIPS. OSTOMY WITH SMALL AMOUNT BROWNISH LIQUID IN BAG, PT DENIES HAVING EMPTIED RECENTLY. PT INDEPENDENT WITH AMBULATION AND ALL PERSONAL CARE, REPORTS THAT SHE WILL TAKE A SHOWER THIS AFTERNOON WHEN DAUGHTER IS HERE TO VISIT SHE FEELS MORE COMFORTABLE WITH HER HELPING.
--- NOTE | 2021-01-16 11:52 | NUR ---
PT REPORTS PAIN 3/10 BUT TOLERABLE. DENIES ANY NEEDS AT THIS TIME.
--- NOTE | 2021-01-16 17:37 | NUR ---
PT'S DAUGHTER IN ROOM THIS AFTERNOON, MET WITH THIS RN AND FLIGHT PHYSICIAN TO DISCUSS DISCHARGE PLAN. PT ASSISTED TO SHOWER BY DAUGHTER AND THEN HAD C/O PAIN 5 FOLLOWING SHOWER. MEDICATED PER EMAR.PT HAS CONTINUED TO TOLERATE CLEAR LIQUIDS WITH NO C/O N/V. PT CONTINUES TO BE INDEPENDENT IN THE ROOM WITH FWW, HAS NOT REQUIRED ANY ASSISTANCE FROM STAFF FOR ANY ADL'S OR REPOSITIONING.
--- NOTE | 2021-01-16 17:53 | NUR ---
TELEPHONE ORDER FROM DR PERSAUD TO START 12MCG FENTANYL PATCH TO START WEANING OFF IV PAIN MEDICATION TO START PREPARING FOR DC TO HOSPICE/SNF.
--- NOTE | 2021-01-17 01:07 | NUR ---
SUBLIMAZE TOPICAL PATCH PT REPORTS FEELING LIKE THE PATCH MADE HER FEEL DIZZY AND GAVE HER A DRY MOUTH, PATCH REMOVED PER PATIENT REQUEST. ADMINISTERED 5MG MORPHINE PER ORDER (SEE EMAR).
--- NOTE | 2021-01-17 07:08 | NUR ---
SHIFT SUMMARY HOSPICE PATIENT, REPORTED SOME PAIN THIS SHIFT, MANAGED PER EMAR, REPORTS FEELING DIZZY c SUBLIMAZE PATCH AND NO PAIN RELIEF FROM IT AND ASKED IF IT COULD BE REMOVED WHICH IT WAS. NO ACUTE EVENTS THIS SHIFT. CALL LIGHT IN REACH, WILL CTM AND REPORT TO DAY RN.
--- NOTE | 2021-01-17 14:35 | NUR ---
Received notification from [facility] manager grocery (Smooth Melendez) that patient is hospice appropriate and able to be accepted onto service post discharge. Will attempt to meet with patient and/or family today to further discuss the above. Will continue to monitor and follow for discharge. Dipika Moyer Referral Liaison
--- NOTE | 2021-01-17 15:21 | NUR ---
PT. HAD EPISODE OF EMESIS (200CC YELLOWISH LIQUID). ZOFRAN GIVEN AND ALSO MORPHINE 5MG FOR C/O ABDOMINAL DISCOMFORT. COLOSTOMY POUCH CLEAN AND EMPTY, NO BM PRESENT. NO GAS IN POUCH. AT THIS TIME IS RESTING WITH NO FURTHER COMPLAINT. CALL LIGHT IN REACH.
--- NOTE | 2021-01-18 01:24 | NUR ---
SHIFT CHANGE. ACCEPTED CARE .
--- NOTE | 2021-01-18 01:30 | NUR ---
PT APPEARS SLEEPING .
--- NOTE | 2021-01-18 07:32 | NUR ---
PT DRINKING WATER AND CHEWING ON ICE.MED WITH ZOFRAN AND AND MORPHINE PER PT REQUEST.AT THIS TIME,PT REPORTS SEEING HER DOG IN HER PT ROOM.REPORTS PLEASED WITH THIS.
--- NOTE | 2021-01-18 08:21 | NUR ---
PT REPORTED PAIN IMPROVED AFTER PAIN MEDS RATES 02/17 AT THIS TIME. PROVIDED SUGAR AND STRAWS PER PT REQUEST. CALL LIGHT IN REACH.
--- NOTE | 2021-01-18 11:15 | NUR ---
[facility]/PALLIATIVE CARE IN TO SEE PTWilbur
--- NOTE | 2021-01-18 11:53 | NUR ---
Comfort Care Visit Pt resting in bed upon arrival. Pt is A&OX4 and reports 8/10 pain in her abdomen. Discussed plan with Pt in agreement for placement with hospice services. Discussed current pain regimen and Pt is agreeable to start PO. Pt reports preference of tablet form over liquid form. Offered therapeutic listening and answered questions. Pt expresses appreciation and reports no other concerns at this time. Spoke with Pt's Primary RN Tess, discussed case, and reviewed medications. Consulted with Hospital Pharmacist Pavel regarding current regimen. Pavel recommends Morphine tablet 15mg IR PRN Q6 hours. Called and spoke with Dr Hunt. Discussed case and reviewed plan of care. Placed order for Morphine tablet 15mg IR PO Q6 hours PRN, Roxanol 5-20mg SL Q1 PRN, promethazine 12.5mg to 25mg [place] Q6 PRN, D/C promethazine IV and morphine IV per V/O from Dr Hunt. Palliative Care will remain available for symptom management
--- NOTE | 2021-01-18 11:53 | NUR ---
PT REPORTS NAUSEA AND PAIN IMPROVED. CALL LIGHT IN REACH.
--- NOTE | 2021-01-18 11:54 | NUR ---
PT REPORTS PAIN AND NAUSEA IMPROVED DENIES ANY NEEDS AT THIS TIME. CALL LIGHT IN REACH.
--- NOTE | 2021-01-18 17:25 | NUR ---
SUMMARY PT CHANGED TO PO PAIN MEDS THIS SHIFT. ADMINISTERED MS IR THIS AFTERNOON PER ORDERS. PT SLEPT FOR A COUPLE HOURS AND THEN HAD BOUT OF EMESIS UPON WAKING. MEDICATED PER ORDERS W/IV ZOFRAN AND 5 MG ROXANOL. PT APPEARS SLIGHTLY CONFUSED AT TIMES. CALLED RN INTO ROOM, STATING "I NEED YOU" BUT COULD NOT STATE WHAT NEEDED. PROVIDED COOL WASHCLOTH, FRESH ICE PER REQUEST. BED ALARM ON.
--- NOTE | 2021-01-19 12:05 | NUR ---
Comfort Care Visit Pt resting in bed upon arrival. Engaged in therapeutic listening as Pt states feeling Roxanol dose may be strong. She reports dose is making her too sleepy and inability to interact in her environment. Discussed the importance of requesting lessor dose to primary RN when medication is requested. Offered therapeutic listening and answered questions. Spoke with Primary RN Monroe and reviewed comfort medications. Recommended offering Pt 10mg of Roxanol during her next pain request and adjust as needed. Monroe reports no new concerns at this time. Palliative Care will remain available.
--- NOTE | 2021-01-19 18:35 | NUR ---
SHIFT SUMMARY PATIENT AOX4, COMFORT CARE CONTINUED. PATIENT REQUESTED PRN PAIN MEDICATION X1 ON SHIFT. ASKING FOR ONLY 10MG OF MORPHINE, RN GAVE REQUESTED. ILLEOSTOMY BAG C/D/I WITH GOOD OUTPUT. SCHEDULED FENTANYL PATCH APPLIED TO LEFT SHOULDER.
--- NOTE | 2021-01-19 21:42 | NUR ---
PT APPEARS SLEEPONG.
--- NOTE | 2021-01-20 07:17 | NUR ---
SUMMARY PT HAS HAD IMPROVED PAIN CONTROL.ILEOSTOMY WITH GOOD OUTPUT
--- NOTE | 2021-01-20 17:00 | NUR ---
shift summary; pt. pleasant, alert and oriented. Using bsc with contact guard assist to void. Colostomy putting out brown liquid, moderate amount. Did complian of 6 out of 10 pain today in abdomen, request roxanol. 10mg sl given and pt. verbalize relief. Allevyn added to bony prominence on back to help relieve pressure and pt. helped with repositioning multiple times during shift, ice backs for back and neck as per pt. request. at this time pt. is sleeping.
--- NOTE | 2021-01-20 23:44 | NUR ---
PT IS IN BED AND IS RESTING COMFORTABLY WITH HER EYES CLOSED AND IS IN STABLE CONDITION. SHE IS ASSISTED WITH CARE AND ADLS, ASSISTED WITH BATHROOM AND TOILETING NEEDS. REPORTED PAIN AND MEDICATED WITH PRN ORAL MORPHINE WITH POSITIVE EFFECT, NO OTHER COMPLAINT. SHE IS GIVEN HER CALL BUTTON AND URGED TO CALL FOR HELP WHEN ASSISTANCE IS NEEDED SHE IS MONITORED.
--- NOTE | 2021-01-21 10:04 | NUR ---
RAPID COVID TEST DONE AND SENT TO LAB
--- NOTE | 2021-01-21 10:13 | NUR ---
REPORT GIVEN TO ROEL FROM [facility] GIVEN VIA TELEPHONE AT THIS TIME. DAUGHTER IN ROOM WITH PATIENT. ROXANOL GIVEN EARLIER FOR STOMACH SPASMS, VERBALIZE RELIEF. RESTING WITH NO COMPLAINT.
--- NOTE | 2021-01-21 10:20 | NUR ---
PT. VERBALIZE CONCERNS ABOUT CARE AND EXPECTATIONS REGARDING DISCHARGE. REASSURANCE GIVEN THAT THE FACILITY AND HOSPICE ARE THERE FOR HER AND THERE ARE NO EXPECTATIONS FROM HER ( REGARDING TAKING SELF TO BATHROOM ECT.) 1:1 VERBAL HELPFUL.
[2021-01-21 10:46] LABS: Influenza A, PCR NEGATIVE (NEGATIVE); Influenza B, PCR NEGATIVE (NEGATIVE); Resp Syncytial Virus, PCR NEGATIVE (NEGATIVE); SARS-Cov-2 (COVID-19) PCR, MMC NEGATIVE (NEGATIVE)
--- NOTE | 2021-01-21 11:55 | NUR ---
PT. DISCHARGED TO [facility]. [facility]/C TRANSPORT HERE TO TAKE PT.- PERSONAL BELONGINGS SENT WITH PT. AND PAPERWORK.
--- NOTE | 2021-01-21 13:12 | NUR ---
Per Dr. Youssef discharge appropriate for 01/21/21. Patient does not oppose to discharge. Patient discharged and transported to Assisted Living (with hospice services)-[facility]. Transportation and DME coordinated through [facility] hvac sales representative-Dipika Moyer. [facility] will coordinate follow up appointment with [place] PCP (within seven days of discharge). Patient knows to contact her PCP if she has any questions regarding medication management or any medical or social service needs. Daughter Mari notified of discharge and transport to [facility]. No barriers to discharge.
--- NOTE | 2021-01-21 17:38 | NUR ---
Pt d/c'd to [facility] this afternoon, and reported the adjusted dose of Roxanol to 10mg was working well, and "not too strong". Pt remains alert and able to make her needs and wants known.
== END 2021-01-21 11:45 | disposition hospice, inpatient (51) | DRG 375 ==
LOC: ER 09:15 → MEDS 09:16 → SURS 14:57
PROVIDERS: Emergency Medicine; Preventive Medicine Medical Toxicology; ADMIT Family Medicine
DX: C18.7 Malignant neoplasm of sigmoid colon (principal); C18.4 Malignant neoplasm of transverse colon; E44.0 Moderate protein-calorie malnutrition; Z68.1 Body mass index [BMI] 19.9 or less, adult; Z88.1 Allergy status to other antibiotic agents; Z88.0 Allergy status to penicillin; Z20.822 Contact with and (suspected) exposure to COVID-19; Z90.49 Acquired absence of other specified parts of digestive tract; Z51.5 Encounter for palliative care; Z88.8 Allergy status to other drugs, medicaments and biological substances; Z79.899 Other long term (current) drug therapy; K57.30 Diverticulosis of large intestine without perforation or abscess without bleeding; E87.6 Hypokalemia; K44.9 Diaphragmatic hernia without obstruction or gangrene; D63.0 Anemia in neoplastic disease; D64.81 Anemia due to antineoplastic chemotherapy; T45.1X5A Adverse effect of antineoplastic and immunosuppressive drugs, initial encounter; M81.0 Age-related osteoporosis without current pathological fracture; Z90.710 Acquired absence of both cervix and uterus; Z98.890 Other specified postprocedural states; Z85.038 Personal history of other malignant neoplasm of large intestine; Z87.891 Personal history of nicotine dependence; Z85.3 Personal history of malignant neoplasm of breast
CPT/HCPCS: 0241U; 36415; 74177; 80053; 80069; 83735; 85025; 96372; 96374; 96375; 96376; 97110; 97161; 97165; 97530; 99285-25; A9270; G0378; J1170; J1650; J1790; J2270; J2405; J2550; J2765; J3010; J3475; J3480; J7030; J7042; J7060; J7120; Q9967